=== PATIENT | female | born 2000 | race Asian ===

== ENCOUNTER 2020-10-17 14:32 | Emergency (ER) | payer OTHER, SELFPAY ==
[2020-10-17 15:02] VITALS: BP 141/87; PULSE 78; RESP 18; TEMP 36.4; O2SAT 98; BMI 23.5
[2020-10-17 19:56] VITALS: BP 112/68; PULSE 86; RESP 18; TEMP 37; O2SAT 99
--- NOTE | 2020-10-17 20:06 | ED_ITS ---
HPI - Abdominal Pain General Chief Complaint: Abdominal Pain Stated Complaint: LLQ pain with flank pain Time Seen by Provider: 10/17/20 20:06 Source: patient Mode of arrival: ambulatory Limitations: no limitations History of Present Illness HPI narrative: Otherwise healthy 20-year-old female presenting ambulatory via triage with complaint of suprapubic abdominal pain mostly on the left side and mild flank pain on the diffuse lower back. States she was at urgent care evaluated her urine dipstick showed blood so she was advised to come to the emergency room. States the pain has been going on for 1 day. There is some associated nausea but no vomiting or diarrhea. No fever. No recent travel or sick contacts. MD elicited complaint: abdominal pain and flank pain Pertinent past history: none Location: none Quality: aching Migration to: no migration Related Data Allergies Allergy/AdvReac Type Severity Reaction Status Date / Time No Known Allergies Allergy Verified 10/17/20 15:08 Review of Systems Review of Systems Constitutional: No Weight loss, No Fever, No Chills, No Night Sweats, No Fatigue, No Malaise ENT/Mouth: No Hearing loss, No Ear Pain, No Nasal Congestion, No Sinus Pain, No Hoarseness, No sore throat, No Rhinorrhea, No Swallowing Difficulty Eyes: No Eye Pain, No Swelling, No Redness, No Foreign Body, No Discharge, No Vision Changes Cardiovascular: No Chest Pain, No SOB, No Dyspnea on Exertion, No Orthopnea, No Edema, No Palpitations Respiratory: No Cough, No Sputum, No Wheezing, No Smoke Exposure, No Dyspnea Gastrointestinal: No Nausea, No Vomiting, No Diarrhea, No Constipation, + abdominal Pain, No Hematochezia, No Melena Genitourinary: no irregular bleeding, No Dysuria, No Urinary Frequency, No Hematuria, No Urinary Incontinence, No Urgency, No Flank Pain Musculoskeletal: No joint pain, No Myalgias, No Joint Swelling Skin: No Skin Lesions, No rash Neuro: No Weakness, No Numbness, No Paresthesias, No Loss of Consciousness, No Dizziness, No Headache Psych: No Social Issues Heme/Lymph: No Bruising, No Bleeding,No Lymphadenopathy Endocrine: No Polyuria, No Polydipsia, No Temperature Intolerance Yes all other systems are reviewed and are negative Physical Exam Vital Signs: Vital Signs: Last Vital Signs Temp 98.8 F 10/17/20 22:42 Pulse 86 10/17/20 22:42 Resp 17 10/17/20 22:42 BP 110/81 10/17/20 23:00 Pulse Ox 100 10/17/20 22:42 Body Mass Index 23.5 Reviewed Const: General: cooperative and healthy appearing; No acute distress or intoxicated appearing Nutritional Appearance: average body habitus Orientation/consciousness: patient oriented x3 HENMT: Head: Yes normal to inspection Ears: hearing grossly normal bilaterally Eyes: General: appearance normal, both eyes and all related structures Visual Nichols: normal visual nichols by confrontation Neck: Neck: Yes normal visual inspection and No tender Thyroid: Thyroid normal Chest: Chest palpation & inspection: normal inspection of the chest Resp: Effort & Inspection: normal respiratory effort Auscultation: clear to auscultation bilaterally Cardio: Jugular venous distension: no JVD Rate: regular rate Rhythm: regular rhythm Heart sounds: S1 normal heart sound present and S2 normal heart sound present GI: Inspection: Yes normal to inspection Palpation (GI): Soft to palpation Percussion: Yes normal to percussion Auscultation: normal bowel sounds : General: Yes no CVA tenderness Back/Spine/Pelvis: Back: no CVA tenderness Skin: General skin exam: no rashes or lesions noted Neuro: General: patient oriented x3 Extrem: General: Yes normal to inspection Course Course Course Narrative: Nonspecific left lower quadrant/pelvic pain, flank pain this seems more like myalgias. Ultrasound of the pelvis, transvaginal, ovarian Doppler rule out cyst, torsion negative. Ultrasound of the kidneys bilaterally no evidence of obstructive process/calculi/uropathy. Labs otherwise stable. No leukocytosis. Urine negative for acute infection. Was a mild type pains will do COVID/RSV/flu swab. She is requesting be discharged if she feels better with IV fluids and requesting to be called with the results. Reevaluation(s) Reevaluation #1: : Negative COVID results MDM - Abdominal Pain Lab Data Result diagrams: 10/17/20 20:56 10/17/20 20:56 Labs: Lab Results 10/17/20 10/17/20 10/17/20 Range/Units 20:56 20:56 20:56 WBC 5.5 (4.8-10.8) X10*3/uL RBC 4.49 (4.20-5.50) X10*6/uL Hgb 12.9 (12.0-16.0) g/dl Hct 40.0 (37-47) % MCV 89.1 (80-98) fL MCH 28.7 (27.0-33.0) pg MCHC 32.3 (31.0-35.0) g/dl RDW 12.4 (11.0-16.0) % Plt Count 257 (160-400) X10*3/uL MPV 10.3 (9.4-12.3) fL Immature Gran % (Auto) 0.0 (0.0-0.4) % Neut % (Auto) 54.0 (45-73) % Lymph % (Auto) 35.9 (20-40) % Frio % (Auto) 9.3 (2-11) % Eos % (Auto) 0.4 (0-4) % Baso % (Auto) 0.4 (0-2) % Lymph # (Auto) 2.0 (1.2-4.9) X10*3/uL Frio # (Auto) 0.5 (0.1-1.2) X10*3/uL Eos # (Auto) 0.0 (0.0-0.4) X10*3/uL Baso # (Auto) 0.0 (0.0-0.2) X10*3/uL Abs Immat Gran (auto) 0.00 (0.00-0.03) X10*3/uL Absolute Neuts (auto) 3.0 (2.0-8.3) X10*3/uL Absolute Nucleated RBC 0.000 (0.0-0.012) X10*3/uL Nucleated RBC % (auto) 0.0 (0.0-0.2) /100WBC Sodium 138 (135-145) mmol/L Potassium 4.3 (3.3-5.1) mmol/l Chloride 105 (96-108) mmol/L Carbon Dioxide 22 (22-29) mmol/L Anion Gap 15 (12-20) BUN 12 (9-16) mg/dL Creatinine 0.76 (0.5-1.4) mg/dL Estim Creat Clear Calc 101.1 Estimated GFR > 60 Random Glucose 82 (60-115) mg/dL Calcium 9.5 (8.4-10.2) mg/dL Total Bilirubin 0.6 (0.0-1.0) mg/dL AST 21 (5-31) U/L ALT 11 (0-31) U/L Alkaline Phosphatase 53 (39-117) U/L Total Protein 7.6 (6.5-8.0) g/dL Albumin 4.7 (3.5-5.0) g/dL Urine Color YELLOW Urine Appearance CLEAR Urine pH 5.5 (5.0-8.0) Ur Specific [place] 1.025 (1.005-1.025) Urine Protein NEG (NEG-TRACE) MG/DL Urine Glucose (UA) NEG (NEG) MG/DL Urine Ketones 15 (NEG) MG/DL Urine Blood TRACE (NEG) Urine Nitrite NEG (NEG) Ur Leukocyte Esterase NEG (NEG) Urine RBC 0-2 (0) /HPF Urine WBC 0 (0-4) /HPF Ur Squamous Epith Cells 2+ /LPF Urine Bacteria TRACE /LPF Urine Test NEGATIVE (NEGATIVE) Coronavirus (PCR) (Negative) Influenza Type A (PCR) (Negative) Influenza Type B (PCR) (Negative) RSV RNA Qual (PCR) (Negative) 10/17/20 Range/Units 22:55 WBC (4.8-10.8) X10*3/uL RBC (4.20-5.50) X10*6/uL Hgb (12.0-16.0) g/dl Hct (37-47) % MCV (80-98) fL MCH (27.0-33.0) pg MCHC (31.0-35.0) g/dl RDW (11.0-16.0) % Plt Count (160-400) X10*3/uL MPV (9.4-12.3) fL Immature Gran % (Auto) (0.0-0.4) % Neut % (Auto) (45-73) % Lymph % (Auto) (20-40) % Frio % (Auto) (2-11) % Eos % (Auto) (0-4) % Baso % (Auto) (0-2) % Lymph # (Auto) (1.2-4.9) X10*3/uL Frio # (Auto) (0.1-1.2) X10*3/uL Eos # (Auto) (0.0-0.4) X10*3/uL Baso # (Auto) (0.0-0.2) X10*3/uL Abs Immat Gran (auto) (0.00-0.03) X10*3/uL Absolute Neuts (auto) (2.0-8.3) X10*3/uL Absolute Nucleated RBC (0.0-0.012) X10*3/uL Nucleated RBC % (auto) (0.0-0.2) /100WBC Sodium (135-145) mmol/L Potassium (3.3-5.1) mmol/l Chloride (96-108) mmol/L Carbon Dioxide (22-29) mmol/L Anion Gap (12-20) BUN (9-16) mg/dL Creatinine (0.5-1.4) mg/dL Estim Creat Clear Calc Estimated GFR Random Glucose (60-115) mg/dL Calcium (8.4-10.2) mg/dL Total Bilirubin (0.0-1.0) mg/dL AST (5-31) U/L ALT (0-31) U/L Alkaline Phosphatase (39-117) U/L Total Protein (6.5-8.0) g/dL Albumin (3.5-5.0) g/dL Urine Color Urine Appearance Urine pH (5.0-8.0) Ur Specific [place] (1.005-1.025) Urine Protein (NEG-TRACE) MG/DL Urine Glucose (UA) (NEG) MG/DL Urine Ketones (NEG) MG/DL Urine Blood (NEG) Urine Nitrite (NEG) Ur Leukocyte Esterase (NEG) Urine RBC (0) /HPF Urine WBC (0-4) /HPF Ur Squamous Epith Cells /LPF Urine Bacteria /LPF Urine Test (NEGATIVE) Coronavirus (PCR) NEGATIVE (Negative) Influenza Type A (PCR) NEGATIVE (Negative) Influenza Type B (PCR) NEGATIVE (Negative) RSV RNA Qual (PCR) NEGATIVE (Negative) Imaging Data Pelvic/Doppler study: Radiologist's impression: [address] [address] Ultrasound Report Signed Patient: Eleonora Bauman#: [id number] : 2000Acct:[id number] Age/Sex: 20 / FADM Date: 10/17/20 Loc: HO.ED Attending Dr: Ordering Physician: Don Keita NP Date of Service: 10/17/20 Procedure(s): US pelvic complete Accession Number(s): [id number] cc: Don Keita EGYPTOLOGIST~ EXAMINATION: PELVIC ULTRASOUND CLINICAL INFORMATION: Pelvic pain and flank pain COMPARISON: Pelvic ultrasound 11/09/2017 TECHNIQUE: Both transabdominal endovaginal scanning was performed. Color flow Doppler imaging was also utilized. FINDINGS: An anteverted uterus is present measuring 8.6 x 4.0 x 5.5 cm. The endometrium is homogeneous and normal in appearance measuring 1.0 cm. No uterine masses are seen The right ovary measures 2.7 x 2.2 x 1.8 cm for a volume of 6 mL. Left ovary measures 3.9 x 1.6 x 2.0 cm for a volume of 7 mL of a cyst. Normal arterial and venous flow is noted in both ovaries. No significant free fluid is present in the pelvis US/US pelvic complete IMPRESSION: No significant abnormality seen. Dictated By:GERMAN SALGADO MD Signed By:<Electronically signed by GERMAN SALGADO MD in OV>10/17/202143 DD/ 43 TD/TT: Hearing Health Technician: SANIYA Renal ultrasound: Radiologist's impression: [place] [address] Ultrasound Report Signed Patient: Eleonora Bauman#: [id number] : 2000Acct:[id number] Age/Sex: FADM Date: 10/17/20 Loc: .ED Attending Dr: Ordering Physician: Don Keita NP Date of Service: 10/17/20 Procedure(s): US renal BI Accession Number(s): [id number] cc: Don Keita EGYPTOLOGIST~ EXAMINATION: US RETROPERITONEAL LIMITED (RENAL ONLY) CLINICAL INFORMATION: Flank and pelvic pain. COMPARISON: None TECHNIQUE: Ultrasound of the kidneys was performed. FINDINGS: RIGHT KIDNEY: 10.6 x 4.4 x 5.5 cm (SAG x AP x TRV). The kidney is normal in size, contour, and echogenicity. Renal cortical thickness is normal. No calculi or focal parenchymal lesions. No hydronephrosis. LEFT KIDNEY: 10.6 x 5.1 x 5.7 cm (SAG x AP x TRV). The kidney is normal in size, contour, and echogenicity. Renal cortical thickness is normal. No calculi or focal parenchymal lesions. No hydronephrosis. US/US renal BI IMPRESSION: Normal-appearing kidneys.. Dictated By:GERMAN SALGADO MD Signed By:<Electronically signed by GERMAN SALGADO MD in OV>10/17/202139 DD/ 43 TD/TT: Hearing Health Technician: SS Discharge Plan Discharge Clinical Impression: Abdominal pain Patient Disposition: Home, Self-Care Instructions: Acute Abdominal Pain (ED) Additional Instructions: Blood work was overall stable Urine test did not show any evidence of infection, no Ultrasound of the kidneys were within normal limits Ultrasound of the pelvis did not show any evidence of ovarian cyst or torsion Your COVID test is pending will call you with results in 1 hour Supportive care discussed Return if any concerns or worsening symptoms Thank you Referrals: Georgia Stovall MD [Primary Care Provider] - 1 week Interventions: ED Discharge Assessment Last Done: 10/17/20 23:06 Discharge Date/Time: 10/17/20 23:07 [facility] Social History Social History Alcohol intake: never Smoking Status: Light tobacco smoker Use of substances other than those prescribed or required for medical reasons: No Advance Directives: No Advance Directives Information Provided: Yes
--- NOTE | 2020-10-17 20:44 | US_ITS ---
EXAMINATION: PELVIC ULTRASOUND CLINICAL INFORMATION: Pelvic pain and flank pain COMPARISON: Pelvic ultrasound 11/09/2017 TECHNIQUE: Both transabdominal endovaginal scanning was performed. Color flow Doppler imaging was also utilized. FINDINGS: An anteverted uterus is present measuring 8.6 x 4.0 x 5.5 cm. The endometrium is homogeneous and normal in appearance measuring 1.0 cm. No uterine masses are seen The right ovary measures 2.7 x 2.2 x 1.8 cm for a volume of 6 mL. Left ovary measures 3.9 x 1.6 x 2.0 cm for a volume of 7 mL of a cyst. Normal arterial and venous flow is noted in both ovaries. No significant free fluid is present in the pelvis US/US transvaginal IMPRESSION: No significant abnormality seen.
--- NOTE | 2020-10-17 20:44 | US_ITS ---
EXAMINATION: US RETROPERITONEAL LIMITED (RENAL ONLY) CLINICAL INFORMATION: Flank and pelvic pain. COMPARISON: None TECHNIQUE: Ultrasound of the kidneys was performed. FINDINGS: RIGHT KIDNEY: 10.6 x 4.4 x 5.5 cm (SAG x AP x TRV). The kidney is normal in size, contour, and echogenicity. Renal cortical thickness is normal. No calculi or focal parenchymal lesions. No hydronephrosis. LEFT KIDNEY: 10.6 x 5.1 x 5.7 cm (SAG x AP x TRV). The kidney is normal in size, contour, and echogenicity. Renal cortical thickness is normal. No calculi or focal parenchymal lesions. No hydronephrosis. US/US renal BI IMPRESSION: Normal-appearing kidneys..
--- NOTE | 2020-10-17 20:44 | US_ITS ---
EXAMINATION: PELVIC ULTRASOUND CLINICAL INFORMATION: Pelvic pain and flank pain COMPARISON: Pelvic ultrasound 11/09/2017 TECHNIQUE: Both transabdominal endovaginal scanning was performed. Color flow Doppler imaging was also utilized. FINDINGS: An anteverted uterus is present measuring 8.6 x 4.0 x 5.5 cm. The endometrium is homogeneous and normal in appearance measuring 1.0 cm. No uterine masses are seen The right ovary measures 2.7 x 2.2 x 1.8 cm for a volume of 6 mL. Left ovary measures 3.9 x 1.6 x 2.0 cm for a volume of 7 mL of a cyst. Normal arterial and venous flow is noted in both ovaries. No significant free fluid is present in the pelvis US/US pelvic ovarian doppler IMPRESSION: No significant abnormality seen.
--- NOTE | 2020-10-17 20:44 | US_ITS ---
EXAMINATION: PELVIC ULTRASOUND CLINICAL INFORMATION: Pelvic pain and flank pain COMPARISON: Pelvic ultrasound 11/09/2017 TECHNIQUE: Both transabdominal endovaginal scanning was performed. Color flow Doppler imaging was also utilized. FINDINGS: An anteverted uterus is present measuring 8.6 x 4.0 x 5.5 cm. The endometrium is homogeneous and normal in appearance measuring 1.0 cm. No uterine masses are seen The right ovary measures 2.7 x 2.2 x 1.8 cm for a volume of 6 mL. Left ovary measures 3.9 x 1.6 x 2.0 cm for a volume of 7 mL of a cyst. Normal arterial and venous flow is noted in both ovaries. No significant free fluid is present in the pelvis US/US pelvic complete IMPRESSION: No significant abnormality seen.
[2020-10-17] MEDS: 0.9 % Sodium Chloride 1,000 ML 999 ML IV (20:58)
[2020-10-17 21:05] LABS: MANUAL DIFF FLAG NO
[2020-10-17 21:07] LABS: Basophils Percent Auto 0.4 % (0-2); Eosinophils Percent Auto 0.4 % (0-4); Hemoglobin 12.9 g/dl (12.0-16.0); Lymphocytes Percent Auto 35.9 % (20-40); Mean Corpuscular HGB Conc 32.3 g/dl (31.0-35.0); Mean Corpuscular Hemoglobin 28.7 pg (27.0-33.0); Mean Corpuscular Volume 89.1 fL (80-98); Mean Platelet Volume 10.3 fL (9.4-12.3); Monocytes Absolute Auto 0.5 X10*3/uL (0.1-1.2); Monocytes Percent Auto 9.3 % (2-11); Platelet Count 257 X10*3/uL (160-400); Red Blood Count 4.49 X10*6/uL (4.20-5.50); Red Cell Distribution Width 12.4 % (11.0-16.0); White Blood Count 5.5 X10*3/uL (4.8-10.8)
--- NOTE | 2020-10-17 21:13 | PC.NURSE ---
patient [place]
[2020-10-17 21:21] LABS: Glucose Urine UA NEG (NEG); Leukocyte Esterase Urine NEG (NEG); Nitrite Urine NEG (NEG); PH 5.5 (5.0-8.0); Specific Gravity - Urine 1.025 (1.005-1.025); Urine Blood TRACE (NEG); Urine Ketones 15 MG/DL (NEG); Urine Protein NEG (NEG-TRACE)
[2020-10-17 21:26] LABS: Appearance Urine CLEAR; Color Urine YELLOW
[2020-10-17 21:27] LABS: UPreg QC Valid YES; Urine Pregnancy NEGATIVE (NEGATIVE)
[2020-10-17 21:33] LABS: Bacteria Urine TRACE /LPF; RBC Urine 0-2 /HPF (0); Squamous Epithelial Cell Urine 2+ /LPF; WBC Urine 0 /HPF (0-4)
[2020-10-17 21:39] LABS: Alanine Aminotransferase 11 U/L (0-31); Albumin Level 4.7 g/dL (3.5-5.0); Alkaline Phosphatase 53 U/L (39-117); Anion Gap 15 (12-20); Aspartate Amino Transferase 21 U/L (5-31); Bilirubin Total 0.6 mg/dL (0.0-1.0); Blood Urea Nitrogen 12 mg/dL (9-16); Calcium 9.5 mg/dL (8.4-10.2); Carbon Dioxide 22 mmol/L (22-29); Chloride 105 mmol/L (96-108); Creatinine Clr Calc Pharmacy 101.1; Estimated Glomerular Filt Rate > 60; Glucose Random 82 mg/dL (60-115); Potassium 4.3 mmol/l (3.3-5.1); Sodium 138 mmol/L (135-145); Total Protein 7.6 g/dL (6.5-8.0)
[2020-10-17 22:42] VITALS: PULSE 86; RESP 17; TEMP 37.1; O2SAT 100
[2020-10-17 22:58] VITALS: BP 110/81
[2020-10-17 23:00] VITALS: BP 110/81
[2020-10-17 23:52] LABS: Influenza A PCR NEGATIVE (Negative); Influenza B PCR NEGATIVE (Negative); Resp Syncy Virus RNA Qual PCR NEGATIVE (Negative); SARS COV2 PCR INHOUSE NEGATIVE (Negative)
== END 2020-10-17 23:07 | disposition home or self-care (01) ==
PROVIDERS: Nurse Practitioner Primary Care; Emergency Provider Emergency Medicine; PCP Internal Medicine
DX: R10.32 Left lower quadrant pain (principal); M54.5 Low back pain; F17.200 Nicotine dependence, unspecified, uncomplicated; Z71.6 Tobacco abuse counseling; Z20.828 Contact with and (suspected) exposure to other viral communicable diseases
CPT/HCPCS: 0241U; 36415; 76775; 76830; 76856; 80053; 81001; 81025; 85025; 93975; 96360; 99284